=== PATIENT | female | born 1985 | race African-American/Black ===

== ENCOUNTER 2018-05-10 22:58 | Emergency (ER) | payer OTHER ==
[~2018-05-10] VITALS: Ht 162.6 cm; Wt 107.0 kg
[2018-05-10] MEDS ORDERED: LUNESTA1 MG PO (23:09)
[2018-05-10] MEDS ORDERED: IBUPROFEN 200200 M1 (23:09)
[2018-05-10] MEDS ORDERED: NORCO 5-325 TA1 EACH PO (23:10)
[2018-05-10] MEDS ORDERED: ZOLOFT25 MG PO (23:10)
[2018-05-10] MEDS ORDERED: ACCUNEB SO1.25 MG/1 INH (23:10)
[2018-05-11 00:12] LABS: URINE BILIRUBIN NEGATIVE (Negative); URINE BLOOD 3+ (Negative); URINE CLARITY CLEAR; URINE COLOR YELLOW; URINE GLUCOSE-RANDOM* NEGATIVE (Negative); URINE KETONES NEGATIVE (Negative); URINE LEUKOCYTES-REFLEX NEGATIVE (Negative); URINE NITRITE-REFLEX NEGATIVE (Negative); URINE PROTEIN (DIPSTICK) NEGATIVE (Negative); URINE SPECIFIC GRAVITY >= 1.030 (1.005-1.035); URINE UROBILINOGEN 0.2 E.U./dl (0.2-1.0)
[2018-05-11 00:15] LABS: CASTS None Seen /LPF (None Seen); MUCUS 0-3 Light strn/LPF (None Seen); SQUAMOUS 0-3 Few /LPF (0-3); URINE WBC-REFLEX None Seen /HPF (0-5)
[2018-05-11 00:16] LABS: BACTERIA-REFLEX 1-9 Few /HPF (None Seen); CRYSTALS None Seen /LPF (None Seen)
[2018-05-11 01:02] VITALS: BP 148/79
--- NOTE | 2018-05-11 08:37 | EKG ---
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
== END 2018-05-11 01:06 | disposition home or self-care (01) ==
LOC: ER 22:58
PROVIDERS: Emergency Medicine
DX: R42 Dizziness and giddiness (principal); Z90.49 Acquired absence of other specified parts of digestive tract; Z91.040 Latex allergy status; Z91.02 Food additives allergy status; Z88.8 Allergy status to other drugs, medicaments and biological substances